=== PATIENT | male | born 1950 | race Caucasian/White ===

== ENCOUNTER 2018-01-23 21:18 | Emergency (ER) | payer BC ==
[2018-01-23 21:25] VITALS: BP 138/81
--- NOTE | 2018-01-23 21:57 | EDM.PDOC ---
ED HPI GENERAL MEDICAL PROBLEM - General Chief Complaint: Lower Extremity Injury/Pain Stated Complaint: [facility] Time Seen by Provider: 01/23/18 21:49 - History of Present Illness INITIAL COMMENTS - FREE TEXT/NARRATIVE: 67-year-old male brought into the emergency room by EMS for injuries on his right lower leg ankle and foot and on his low back. Patient fell down some stairs that gave way going into a basement. He did some fading to his ankle that looks like a inversion ankle injury. He has some contusions on his anterior lateral calf. He complains of some low back pain left side of the midline in the lumbar area he has no loss of bowel or bladder control no radicular symptoms He was brought in immediately after the incident occurred Right Lower Leg Pain Score (Numeric/FACES): 4 - Related Data Allergies Allergy/AdvReac Type Severity Reaction Status Date / Time No Known Allergies Allergy Verified 05/31/16 03:20 Home Meds: Home Meds Cholecalciferol (Vitamin D3) [Vitamin D3] 1 cap PO DAILY 06/02/16 [History] Cyanocobalamin (Vitamin B-12) [Vitamin B-12] 1 dose SQ ASDIRECTED 06/02/16 [ History] Glatiramer Acetate [Copaxone] 40 mg SUBCUT ASDIRECTED 06/02/16 [History] Past Medical History Musculoskeletal History: Reports: Other (See Below) Other Musculoskeletal History: left 4th finger with tendon issues Neurological History: Reports: MS - Past Surgical History HEENT Surgical History: Reports: Cataract Surgery, Tonsillectomy GI Surgical History: Reports: Appendectomy Social & Family History - Tobacco Use Smoking Status *Q: Never Smoker - Caffeine Use Caffeine Use: Reports: Coffee, Soda - Recreational Drug Use Recreational Drug Use: No Review of Systems - Review of Systems Review Of Systems: See Below Constitutional: Reports: No Symptoms Eyes: Reports: No Symptoms Ears: Reports: No Symptoms Nose: Reports: No Symptoms Mouth/Throat: Reports: No Symptoms Respiratory: Reports: No Symptoms Cardiovascular: Reports: No Symptoms GI/Abdominal: Reports: No Symptoms Genitourinary: Reports: No Symptoms Musculoskeletal: Reports: No Symptoms Skin: Reports: No Symptoms Neurological: Reports: No Symptoms Psychiatric: Reports: No Symptoms ED EXAM, GENERAL - Physical Exam Exam: See Below Exam Limited By: No Limitations General Appearance: Alert, No Apparent Distress Head: Atraumatic, Normocephalic Neck: Normal Inspection, Supple, Non-Tender, Full Range of Motion Respiratory/Chest: No Respiratory Distress, Lungs Clear, Normal Breath Sounds, No Accessory Muscle Use, Chest Non-Tender Cardiovascular: Normal Peripheral Pulses, Regular Rate, Rhythm, No Edema, No Gallop, No JVD, No Murmur, No Rub GI/Abdominal: Normal Bowel Sounds, Soft, Non-Tender, No Organomegaly Back Exam: Normal Inspection, Other (He has some left lateral back discomfort well away from the bony structures no ecchymosis or swelling seen straight leg raises are normal pelvis intact lower extremities otherwise negative). No: Vertebral Tenderness Course - Vital Signs Last Recorded V/S: Last Vital Signs Temp 36.7 C 01/23/18 21:24 Pulse 78 01/23/18 21:24 Resp 20 01/23/18 21:24 BP 138/81 01/23/18 21:24 Pulse Ox 98 01/23/18 21:24 - Orders/Labs/Meds Orders: Active Orders 24 hr Category Date Time Status Ankle Min 3V Rt [CR] Stat Exams 01/23/18 21:57 Taken Foot Comp Min 3V Rt [CR] Stat Exams 01/23/18 21:57 Taken Lumbar Spine 2 or 3V [CR] Stat Exams 01/23/18 21:57 Taken Tibia Fibula Rt [CR] Stat Exams 01/23/18 21:57 Taken Durable Medical Equipment for Discharge [DME for Oth 01/24/18 00:10 Ordered Discharge] [COMM] Stat - Re-Assessments/Exams Free Text/Narrative Re-Assessment/Exam: 01/24/18 00:00 Examination examination of the ankle shows what looks like a tiny little luisa fracture on the lateral malleolus. He has what looks like an old fracture or accessory ossicle behind the talus over the calcaneus. The lateral malleolar luisa fracture is also identified on the tib-fib views. X-ray examination the foot is negative for fracture dislocation. Close attention to the base of the fifth metatarsal the the questionable fracture behind the talus looks a little more concerning on this view. Views of the lumbar spine show significant degenerative changes with complete loss of disc space between L2-L3 diminished at L1-L2 L3-4 and L5-4-5 pin new acute fracture or deformity noted. The patient will be placed in a Western walker crutches and follow-up with orthopedics 01/24/18 00:11 He does not want anything for pain Departure - Departure Time of Disposition: 00:11 Disposition: Home, Self-Care 01 Clinical Impression: Inversion sprain of left ankle, Fx lateral malleolus-closed - Discharge Information Referrals: Charlie rAguello [Primary Care Provider] - Hermelindo Courtney MD [Physician] - Forms: ED Department Discharge Additional Instructions: Return to emergency room if any questions problems worsening symptoms. Follow-up with Dr. Courtney the middle of this next week Use the walking boot and crutches all the time Tylenol or Motrin as needed for pain - My Orders Last 24 Hours: My Active Orders 01/23/18 21:57 Ankle Min 3V Rt [CR] Stat Foot Comp Min 3V Rt [CR] Stat Lumbar Spine 2 or 3V [CR] Stat Tibia Fibula Rt [CR] Stat 01/24/18 00:10 Durable Medical Equipment for Discharge [DME for Discharge] [COMM] Stat - Assessment/Plan Last 24 Hours: My Active Orders 01/23/18 21:57 Ankle Min 3V Rt [CR] Stat Foot Comp Min 3V Rt [CR] Stat Lumbar Spine 2 or 3V [CR] Stat Tibia Fibula Rt [CR] Stat 01/24/18 00:10 Durable Medical Equipment for Discharge [DME for Discharge] [COMM] Stat
--- NOTE | 2018-01-24 15:28 | CR ---
Right foot: Four views of the right foot were obtained. Comparison: No previous exam. Fracture is again noted within the anterior calcaneus on the lateral view as well as small cortical avulsion fracture off the dorsal navicular bone. Mild joint space narrowing is noted within the first MTP joint. No additional fracture or other bony abnormality is identified. Impression: 1. Fracture is again seen off the anterior calcaneus as well as minimal avulsion off the dorsal navicular bone. 2. Other incidental finding. Diagnostic code #3
--- NOTE | 2018-01-24 15:28 | CR ---
Right tibia and fibula: AP and lateral views of the right tibia and fibula were obtained. Comparison: No previous study. Mild medial joint space narrowing is seen within the knee. Mild subchondral cysts are seen within the medial tibial margin with mild medial osteophyte. Possible small cortical avulsion fracture off the distal fibula. Soft tissue swelling is noted within the ankle. No additional bony abnormality is appreciated. Impression: 1. Possible small avulsion fracture off the distal cortex of the fibula. 2. Degenerative change is noted within the medial compartment of the knee. Diagnostic code #3
--- NOTE | 2018-01-24 15:28 | CR ---
Lumbar spine: AP, lateral and coned-down lateral views centered to the lumbosacral junction were obtained. Comparison: No previous study. Mild anterior wedging noted of the inferior endplate of T12. Age of this is indeterminate. Other vertebral body heights are maintained. Severe disc space narrowing noted at L2-L3. Moderate disc space narrowing noted at L1-L2. Mild disc space narrowing is seen throughout other portions of the lumbar spine. Scattered endplate osteophytes are seen. Minimal posterior osteophytes noted at L2-L3. Pedicles as well as transverse and spinous processes are intact. Sacroiliac joints are within normal limits. Atherosclerotic calcification is noted within the aorta. Impression: 1. Mild anterior wedging of the inferior endplate of T12. Age of this is indeterminate. MRI would be needed to further age this finding if clinically needed. 2. Degenerative change as noted above. Diagnostic code #3
--- NOTE | 2018-01-24 15:29 | CR ---
Right ankle: Four views of the right ankle were obtained. Comparison: No previous ankle study. Small calcifications are seen off the inferior fibula most likely old. Small cortical avulsion fracture is felt to be present slightly more proximal within the distal fibula. Ankle mortise is symmetric. Cortical regularity is also seen within the anterior calcaneus on the lateral view possibly due to additional fracture. Minimal calcifications off the dorsal navicular bone are seen possibly due to additional avulsion injuries. Impression: 1. Possible small avulsion fracture off the distal fibula as well as fracture involving the anterior calcaneus. Possible minimal cortical avulsion fracture off the dorsal navicular bone. 2. Soft tissue swelling. Diagnostic code #3
== END 2018-01-24 00:40 | disposition home or self-care (01) ==
LOC: JD.ED 21:18 → SUPCPDRO 21:18 → JD.ED 01-24 00:40
DX: S82.61XA Displaced fracture of lateral malleolus of right fibula, initial encounter for closed fracture (principal); W10.9XXA Fall (on) (from) unspecified stairs and steps, initial encounter
CPT/HCPCS: 72100; 72100-26; 73590-26-RT; 73590-RT; 73610-26-RT; 73610-RT; 73630-26-RT; 73630-RT; 99284

== ENCOUNTER 2022-08-03 11:37 | Emergency (ER) | payer MEDICARE, BC ==
[2022-08-03 11:53] VITALS: BP 133/96; PULSE 72
[2022-08-03] MEDS ORDERED: ceFAZolin 2 GM in Sodium Chloride 0.9% 50 ML IV ONE (11:53)
[2022-08-03] MEDS ORDERED: Sodium Chloride 0.9% 10 ML Syringe FLUSH PRN (11:53)
[2022-08-03] MEDS ORDERED: Lidocaine 1% 10 ML MDV INJECT ONE (11:56)
== END 2022-08-03 16:04 | disposition home or self-care (01) ==
LOC: JD.ED 11:37
DX: S62.522B Displaced fracture of distal phalanx of left thumb, initial encounter for open fracture (principal); W27.0XXA Contact with workbench tool, initial encounter
CPT/HCPCS: 73140; 96365; 99283; J0690; J3490